=== PATIENT | female | born 1975 | race Caucasian/White ===

== ENCOUNTER 2017-05-14 02:25 | Emergency (ER) | payer BC ==
[2017-05-14 02:32] VITALS: RESP 20
[2017-05-14 03:14] LABS: Basophils # (A) 0.1 k/uL (0-0.2); Basophils % (A) 1 %; CHCM 32.3; Eosinophils # (A) 0.3 k/uL (0-0.7); Eosinophils % (A) 2 %; HCT 39.8 % (34.0-46.0); HGB 12.8 gm/dL (11.4-16.0); Luc % (Auto) 2; Lymphocytes # (A) 2.8 k/uL (1.0-4.8); Lymphocytes % (A) 23 %; MCH 28.8 pg (25.0-35.0); Mean Platelet Volume 6.7; Monocytes # (A) 0.6 k/uL (0-1.0); Monocytes % (A) 5 %; Neutrophils # (A) 8.3 k/uL (1.3-7.7); Neutrophils % (A) 67 %; RBC 4.42 m/uL (3.80-5.40); RDW 13.2 % (11.5-15.5); WBC 12.3 k/uL (3.8-10.6); WBC (Perox) 12.89
[2017-05-14 03:31] LABS: ALT 23 U/L (9-52); AST 14 U/L (14-36); Alkaline Phosphatase 83 U/L (38-126); Amylase 48 U/L (30-110); Anion Gap 10 mmol/L; Blood Urea Nitrogen 13 mg/dL (7-17); Calcium 8.8 mg/dL (8.4-10.2); Carbon Dioxide 22 mmol/L (22-30); Chloride 105 mmol/L (98-107); Glucose 136 mg/dL (74-99); Magnesium 1.9 mg/dL (1.6-2.3); Non-African American GFR(MDRD) >60 (>60 ml/min/1.73 sqM); Potassium 4.4 mmol/L (3.5-5.1); Sodium 137 mmol/L (137-145); Total Bilirubin 0.9 mg/dL (0.2-1.3); Total Protein 6.6 g/dL (6.3-8.2)
--- NOTE | 2017-05-14 03:36 | XR ---
EXAM: XR Chest, 2 Views CLINICAL HISTORY: Reason: Chest Pain TECHNIQUE: Frontal and lateral views of the chest. COMPARISON: No relevant prior studies available. FINDINGS: Lungs: Unremarkable. No consolidation. Pleural space: Unremarkable. No pneumothorax. Heart: Unremarkable. No cardiomegaly. Mediastinum: Unremarkable. Bones/joints: Unremarkable. IMPRESSION: Unremarkable chest x-rays.
[2017-05-14] MEDS ORDERED: RX INFO: IV CONTRAST WAS GIVEN 1 EACH MISC MISCELLANE PRN (03:42)
--- NOTE | 2017-05-14 03:42 | ED ---
Chest Pain HPI - General Chief Complaint: Chest Pain Stated Complaint: Chest Pain Time Seen by Provider: 05/14/17 02:35 Source: patient Mode of arrival: ambulatory Limitations: no limitations - History of Present Illness Initial Comments: This patient is a 41-year-old woman presenting to be evaluated for upper substernal chest pain that is been going on for about 3 days. She states the pain started coming on Tuesday in the afternoon area the patient believes that this is related to her asthma which has been flaring up, after she had a few days of upper respiratory symptoms and cough. Patient denies any anginal symptoms associated, no dyspnea, diaphoresis, nausea or vomiting, palpitations or syncope. No personal or family history of DVT/PE. No leg pain or swelling. No change in urination or bowel movements. MD Complaint: chest pain Onset/Timin -: days(s) Onset: during rest Pain Location: substernal Pain Radiation: none Severity: moderate Quality: aching Consistency: constant Improves With: nothing Worsens With: inspiration Anginal Symptoms: dyspnea Other Symptoms: cough Treatments Prior to Arrival: other - Related Data Home Medications Medication Instructions Recorded Confirmed Albuterol Inhaler [Ventolin Hfa 1 - 2 puff INHALATION Q6HR PRN 05/14/17 05/14/17 Inhaler] Allergies Allergy/AdvReac Type Severity Reaction Status Date / Time No Known Allergies Allergy Verified 05/14/17 02:31 Review of Systems ROS Statement: Those systems with pertinent positive or pertinent negative responses have been documented in the HPI. ROS Other: All systems not noted in ROS Statement are negative. Constitutional: Denies: fever, chills, weakness ENT: Reports: congestion Respiratory: Denies: cough, dyspnea Cardiovascular: Reports: as per HPI, chest pain. Denies: palpitations, dyspnea on exertion, orthopnea, edema Gastrointestinal: Denies: abdominal pain, vomiting, diarrhea Genitourinary: Denies: dysuria, hematuria Musculoskeletal: Denies: back pain Skin: Denies: rash Neurological: Denies: headache, weakness, numbness EKG Findings - EKG Results: EKG: interpreted by TJ ORTIZ, sinus rhythm (Rate approximate 95 bpm), normal axis, normal QRS, normal ST/T, no acute changes - MS, Pacemaker, Normal: Normal tracing: normal tracing Past Medical History Past Medical History: Asthma History of Any Multi-Drug Resistant Organisms: None Reported Past Surgical History: Section Past Psychological History: No Psychological Hx Reported Smoking Status: Never smoker Past Alcohol Use History: Rare Past Drug Use History: None Reported General Exam Limitations: no limitations General appearance: alert, in no apparent distress Head exam: Present: atraumatic, normocephalic Eye exam: Present: normal appearance. Absent: scleral icterus, conjunctival injection ENT exam: Present: normal oropharynx Respiratory exam: Present: normal lung sounds bilaterally. Absent: respiratory distress, wheezes, rales, rhonchi, stridor, chest wall tenderness, accessory muscle use, decreased breath sounds, prolonged expiratory Cardiovascular Exam: Present: regular rate, normal rhythm, normal heart sounds. Absent: systolic murmur, diastolic murmur, rubs, gallop GI/Abdominal exam: Present: soft. Absent: distended, tenderness, guarding, rebound, mass Extremities exam: Present: normal inspection, normal capillary refill. Absent: pedal edema, calf tenderness Back exam: Absent: CVA tenderness (R), CVA tenderness (L) Neurological exam: Present: alert Skin exam: Present: warm, dry, intact, normal color. Absent: rash Course Vital Signs 05/14/17 05/14/17 05/14/17 02:27 04:03 04:48 Temperature 98.7 F Pulse Rate 98 77 90 Respiratory 20 20 20 Rate Blood Pressure 123/65 105/57 108/55 O2 Sat by Pulse 97 97 99 Oximetry 05/14/17 05:39 Temperature 98.0 F Pulse Rate 84 Respiratory 20 Rate Blood Pressure 102/62 O2 Sat by Pulse 96 Oximetry Chest Pain MDM - MDM This patient is a 41-year-old woman who presents with substernal chest pain. Workup does show a small right pleural effusion and small pericardial effusion. Discussed the findings with the patient and did offer to have the echocardiogram performed with the patient here in the hospital. The patient states that she would prefer to have this as outpatient. Discussed signs and symptoms which would be evidence of worsening requiring emergent reevaluation as well as the appropriate further care and follow-up. Disposition Clinical Impression: Pericardial effusion, Pleural effusion Disposition: HOME SELF-CARE Condition: Good Instructions: Chest Pain (ED), Pleurisy (ED), Pericardial Effusion (ED) Additional Instructions: As we discussed, follow-up to have the echocardiogram. Also follow up regarding the pleural effusion. Return if any symptoms worsen or if any new symptoms develop. Referrals: Ted Almanza DO [Primary Care Provider] - 1-2 days Cornelius Levi MD [STAFF PHYSICIAN] - 1-2 days Prabhakar Saleem MD [STAFF PHYSICIAN] - 1-2 days
--- NOTE | 2017-05-14 04:32 | CT ---
EXAM: CT Angiography Chest With Intravenous Contrast CLINICAL HISTORY: Chest pain TECHNIQUE: Axial computed tomographic angiography images of the chest with intravenous contrast using pulmonary embolism protocol. CTDI is 58.20 mGy and DLP is 453.90 mGy-cm. This CT exam was performed using one or more of the following dose reduction techniques: automated exposure control, adjustment of the mA and/or kV according to patient size, and/or use of iterative reconstruction technique. Coronal and sagittal reformatted images were created and reviewed. MIP reconstructed images were created and reviewed. COMPARISON: Chest x-ray dated 05/14/17 FINDINGS: Pulmonary arteries: Unremarkable. No pulmonary embolism. Aorta: No acute findings. No thoracic aortic aneurysm. Lungs: Subsegmental atelectasis at both lung bases. No mass. Pleural space: Trace right pleural effusion. No pneumothorax. Heart: Trace pericardial effusion. No evidence of RV dysfunction. Bones/joints: No acute fracture. No dislocation. Soft tissues: Bilateral saline breast implants. Lymph nodes: Unremarkable. No enlarged lymph nodes. IMPRESSION: 1. No acute pulmonary embolism. 2. No acute parenchymal lung disease. 3. Trace right pleural effusion. 4. Trace pericardial effusion.
[2017-05-14 05:40] VITALS: BP 102/62; PULSE 84; TEMP 98
== END 2017-05-14 05:52 | disposition home or self-care (01) ==
LOC: EC 02:25
DX: I31.3 Pericardial effusion (noninflammatory) (principal); J90 Pleural effusion, not elsewhere classified; J45.909 Unspecified asthma, uncomplicated
CPT/HCPCS: 99285 ×2; 36415; 93005; 85379; 80053; 82150; 83690; 83735; 84484; 85025; 71020; 71275; Q9967